=== PATIENT | male | born 1930 | race Caucasian/White ===

== ENCOUNTER 2021-05-19 06:34 | Inpatient (IN) | payer MEDICARE ==
[2021-05-15 10:03] LABS: BASOPHILS # (AUTO) 0.1 (0.0-0.1); BASOPHILS % 0.9 % (0.0-1.0); EOSINOPHILS # (AUTO) 0.5 (0.0-0.4); EOSINOPHILS % 5.9 % (0.0-6.0); HEMATOCRIT 40.5 % (38.2-49.6); HEMOGLOBIN 13.2 g/dL (14.0-18.0); LYMPHOCYTES # (AUTO) 2.6 (1.0-3.2); LYMPHOCYTES % 29.7 % (18.0-39.1); MEAN CORPUSCULAR HEMOGLOBIN 31.7 pg (28-32); MEAN CORPUSCULAR HGB CONC 32.6 g/dL (31-35); MEAN CORPUSCULAR VOLUME 97.1 fL (81-99); MONOCYTES # (AUTO) 0.7 (0.2-0.8); MONOCYTES % 7.9 % (4.4-11.3); NEUTROPHILS # (AUTO) 4.8 (2.1-6.9); NEUTROPHILS % 54.7 % (38.7-80.0); PLATELET COUNT 253 x10e3/uL (140-360); RED BLOOD COUNT 4.17 x10e6/uL (4.3-5.7); RED CELL DISTRIBUTION WIDTH 14.6 % (11.7-14.4)
[~2021-05-19] VITALS: Ht 167.6 cm; Wt 76.7 kg
[~2021-05-19 06:34] MED LIST: AMLODIPINE BESYL5 MG PO; ATORVASTATIN CA20 MG PO; CLOPIDOGREL75 MG PO; FLOMAX0.4 MG PO; MECLIZINE HCL12.5 MG PO; OMEPRAZOLE40 MG PO; TERBINAFINE HC250 MG PO
[2021-05-19] MEDS ORDERED: SODIUM CHLORIDE 0.9% 250ML 250 ML ONE (06:56)
[2021-05-19] MEDS ORDERED: SODIUM CHLORIDE 0.9% 500ML 500 ML ONE (06:56)
[2021-05-19] MEDS ORDERED: Vancomycin IV 500 MG ONE (06:56)
[2021-05-19] MEDS ORDERED: Vancomycin IV 1 GM VIAL ONE (06:56)
[2021-05-19] MEDS ORDERED: LIDOCAINE 1% W/EPINEPHRINE 20 ML VIAL ONE (06:57)
[2021-05-19] MEDS ORDERED: TRANEXAMIC ACID 1,000 MG/10 ML ML ONE (06:57)
[2021-05-19] MEDS ORDERED: DEXAMETHASONE SOD PHOS 10 MG/1 ML VIAL ONE (07:11)
[2021-05-19] MEDS ORDERED: GABAPENTIN 300 MG CAP ONE (07:11)
[2021-05-19] MEDS ORDERED: CELECOXIB 200 MG CAP ONE (07:11)
[2021-05-19] MEDS ORDERED: CARBIDOPA-LEVO1 EACH PO (07:34)
[2021-05-19] MEDS ORDERED: ROPIVACAINE 246.25 MG, EPINEPHRINE HCL 1:1000 1ML 0.5 MG, CLONIDINE HCL 0.08 MG, KETORO... INJ ONE ×5 (07:45)
[2021-05-19] MEDS ORDERED: SUGAMMADEX SODIUM 200 MG/2 ML VIAL IV ONE (09:19)
[2021-05-19] MEDS ORDERED: METOPROLOL TARTRATE INJ 1 MG/ML VIAL ONE (09:32)
[2021-05-19] MEDS ORDERED: GLYCOPYRROLATE INJ 0.2 MG/ML VIAL ONE (11:43)
[2021-05-19] MEDS ORDERED: PHENYLEPHRINE HCL 1% 10 MG/ML VIAL ONE (11:43)
[2021-05-19] MEDS ORDERED: PROPOFOL IV EMULSION 10 MG/ML 20 ML VIAL ONE (11:43)
[2021-05-19] MEDS ORDERED: ETOMIDATE 2 MG/ML 10 ML INJ IV ONE (11:43)
[2021-05-19] MEDS ORDERED: EPHEDRINE SULFATE INJ 50 MG/ML VIAL ONE (11:43)
[2021-05-19] MEDS ORDERED: POVIDONE IODINE 0.05% 0.05 % ML PO ONE (11:43)
[2021-05-19] MEDS ORDERED: ESMOLOL HCL 100MG/10ML 10 MG/ML VIAL ONE (11:43)
[2021-05-19 12:53] LABS: ANION GAP 10.3 mmol/L (8-16); CALCIUM 8.6 mg/dL (8.4-10.2); CREATININE, SERUM 1.21 mg/dL (0.72-1.25); POTASSIUM 4.3 mmol/L (3.5-5.1)
[2021-05-19] MEDS ORDERED: MIDAZOLAM HCL 2 MG/2 ML VIAL ONE (13:51)
[2021-05-19] MEDS ORDERED: FENTANYL CITRATE/PF 100MCG/2 ML INJ ONE (13:51)
[2021-05-19] MEDS ORDERED: ROPIVACAINE 0.5% 5 MG/ML 30 ML SDV ONE (13:55)
[2021-05-19 14:00] VITALS: BP 150/81
[2021-05-19 14:21] VITALS: BP 150/81
[2021-05-19 15:51] VITALS: BP 167/83
[2021-05-19] MEDS: METOPROLOL TARTRATE 25 MG TAB PO SCH (17:48)
[2021-05-19 20:40] VITALS: BP 142/72
[2021-05-19 20:58] VITALS: BP 142/72
[2021-05-20] VITALS (15 sets, daily range): BP systolic 118–156; BP diastolic 58–71
[2021-05-20] MEDS: SODIUM CHLORIDE 0.9% 1000ML 1,000 ML IV SCH ×3 (02:18→23:50)
[2021-05-20 05:26] LABS: INR 1.02
[2021-05-20 05:27] LABS: PARTIAL THROMBOPLASTIN TIME 32.2 seconds (23.8-35.5)
[2021-05-20 05:37] LABS: ALBUMIN 2.8 g/dL (3.5-5.0); ANION GAP 11.8 mmol/L (8-16); CALCIUM 8.2 mg/dL (8.4-10.2); CHOL/HDL RATIO 2.3 (3.9-4.7); CREATININE, SERUM 1.28 mg/dL (0.72-1.25); POTASSIUM 4.8 mmol/L (3.5-5.1)
[2021-05-20 06:00] LABS: THYROID STIMULATING HORMONE 0.145 uIU/mL (0.350-4.940)
[2021-05-20] MEDS: PANTOPRAZOLE SOD 40 MG TABEC PO SCH (07:30)
[2021-05-20] MEDS: METOPROLOL TARTRATE 25 MG TAB PO SCH (08:12)
[2021-05-20] MEDS ORDERED: HYDRALAZINE HCL 20 MG/ML VIAL IV PRN (08:45)
[2021-05-20] MEDS: ASPIRIN 81 MG CHEW TAB PO SCH (09:00)
[2021-05-20] MEDS: CARBIDOPA/LEVODOPA 10/100 TAB PO SCH ×4 (09:00→20:19)
[2021-05-20] MEDS ORDERED: LIDOCAINE HCL 2% LOCAL 20 ML VIAL ONE (12:38)
[2021-05-20] MEDS ORDERED: HEPARIN SOD/SOD CHLORIDE 2,000 ML ONE (12:38)
[2021-05-20] MEDS ORDERED: IOPAMIDOL 370 MG/ML 200 ML INFUS..BTL INJ ONE (12:38)
[2021-05-20] MEDS ORDERED: FENTANYL CITRATE/PF 100MCG/2 ML INJ ONE (12:48)
[2021-05-20] MEDS ORDERED: SODIUM CHLORIDE 0.9% 1000ML 1,000 ML ONE (12:48)
[2021-05-20] MEDS ORDERED: MIDAZOLAM HCL 2 MG/2 ML VIAL ONE (12:48)
[2021-05-20] MEDS: TAMSULOSIN HCL 0.4 MG CAP PO SCH (17:11)
[2021-05-20] MEDS: AMLODIPINE BESYLATE 5 MG TAB PO SCH (17:11)
[2021-05-20] MEDS: ATORVASTATIN 40 MG TAB PO SCH (20:19)
[2021-05-21] VITALS (8 sets, daily range): BP systolic 111–144; BP diastolic 56–78
[2021-05-21 05:58] LABS: ANION GAP 10.3 mmol/L (8-16); CALCIUM 7.9 mg/dL (8.4-10.2); CREATININE, SERUM 1.24 mg/dL (0.72-1.25); POTASSIUM 4.3 mmol/L (3.5-5.1)
[2021-05-21] MEDS: PANTOPRAZOLE SOD 40 MG TABEC PO SCH (09:13)
[2021-05-21] MEDS: AMLODIPINE BESYLATE 5 MG TAB PO SCH (09:13)
[2021-05-21] MEDS: ASPIRIN 81 MG CHEW TAB PO SCH (09:13)
[2021-05-21] MEDS: CARBIDOPA/LEVODOPA 10/100 TAB PO SCH ×4 (09:13→20:40)
[2021-05-21] MEDS: TAMSULOSIN HCL 0.4 MG CAP PO SCH (16:41)
[2021-05-21] MEDS: ATORVASTATIN 40 MG TAB PO SCH (20:39)
[2021-05-22 05:11] VITALS: BP 138/83
[2021-05-22 08:07] VITALS: BP 161/79
[2021-05-22 08:36] VITALS: BP 161/79
[2021-05-22] MEDS: ASPIRIN 81 MG CHEW TAB PO SCH (09:00)
[2021-05-22] MEDS: LOSARTAN POTASSIUM 25 MG TAB PO SCH (09:02)
[2021-05-22] MEDS: CARBIDOPA/LEVODOPA 10/100 TAB PO SCH ×4 (09:02→21:15)
[2021-05-22] MEDS: PANTOPRAZOLE SOD 40 MG TABEC PO SCH (09:02)
[2021-05-22 12:01] VITALS: BP 147/71
[2021-05-22] MEDS ORDERED: MIDAZOLAM HCL 2 MG/2 ML VIAL ONE (13:24)
[2021-05-22] MEDS ORDERED: GENTAMICIN SULFATE 40 MG/ML 2 ML VIAL ONE (13:25)
[2021-05-22] MEDS ORDERED: LIDOCAINE HCL 2% LOCAL 20 ML VIAL ONE (13:25)
[2021-05-22] MEDS ORDERED: FENTANYL CITRATE/PF 100MCG/2 ML INJ ONE (13:25)
[2021-05-22] MEDS ORDERED: SODIUM CHLORIDE 0.9% 500ML 500 ML ONE (13:26)
[2021-05-22] MEDS ORDERED: IOPAMIDOL 300MG/ML 50ML INFUS..BTL IV ONE (13:26)
[2021-05-22] MEDS ORDERED: Vancomycin IV 1 GM VIAL ONE (13:26)
[2021-05-22] MEDS ORDERED: SODIUM CHLORIDE 0.9% 1000ML 2,000 ML ONE (13:26)
[2021-05-22] MEDS ORDERED: SODIUM CHLORIDE 0.9% 250ML 250 ML ONE (13:27)
[2021-05-22 16:00] VITALS: BP 157/74
[2021-05-22] MEDS: TAMSULOSIN HCL 0.4 MG CAP PO SCH (16:06)
[2021-05-22] MEDS ORDERED: LIDOCAINE 1% W/EPINEPHRINE 20 ML VIAL ONE (18:08)
[2021-05-22 20:00] VITALS: BP 143/71
[2021-05-22] MEDS: ATORVASTATIN 40 MG TAB PO SCH (21:15)
[2021-05-23] VITALS (7 sets, daily range): BP systolic 107–159; BP diastolic 71–88
[2021-05-23] MEDS: PANTOPRAZOLE SOD 40 MG TABEC PO SCH (08:02)
[2021-05-23] MEDS: CARVEDILOL 3.125 MG TAB PO SCH ×2 (08:41→20:55)
[2021-05-23] MEDS: ASPIRIN 81 MG CHEW TAB PO SCH (08:44)
[2021-05-23] MEDS: LOSARTAN POTASSIUM 25 MG TAB PO SCH (08:44)
[2021-05-23] MEDS: CARBIDOPA/LEVODOPA 10/100 TAB PO SCH ×4 (08:45→20:55)
[2021-05-23] MEDS: HYDROCODONE/APAP 10MG-325MG TAB PO PRN (15:31)
[2021-05-23] MEDS: TAMSULOSIN HCL 0.4 MG CAP PO SCH (17:15)
[2021-05-23] MEDS: ATORVASTATIN 40 MG TAB PO SCH (20:54)
[2021-05-24] VITALS: BP 117/74
[2021-05-24 02:17] VITALS: BP 117/74
[2021-05-24 04:00] VITALS: BP 136/80
[2021-05-24] MEDS: HYDROCODONE/APAP 10MG-325MG TAB PO PRN (05:30)
[2021-05-24 08:29] VITALS: BP 147/89
[2021-05-24 08:38] VITALS: BP 147/89
[2021-05-24] MEDS ORDERED: COREG3.125 MG PO (11:05)
[2021-05-24] MEDS ORDERED: DOXYCYCLINE MO100 MG PO (11:08)
== END 2021-05-24 12:30 | disposition home or self-care (01) | DRG 242 ==
LOC: OR 06:34 → PACU V 13:18 → MED/SURG 13:41 → OBSVTOIN 05-20 08:35
PROVIDERS: ADMIT Internal Medicine; ATTEND Internal Medicine
PROC: 4A023N7 Measurement of Cardiac Sampling and Pressure, Left Heart, Percutaneous Approach (ICD-10-PCS; principal; 2021-05-20)
PROC: 0JH607Z Insertion of Cardiac Resynchronization Pacemaker Pulse Generator into Chest Subcutaneous Tissue and Fascia, Open Approach (ICD-10-PCS; 2021-05-20)
PROC: 02H63JZ Insertion of Pacemaker Lead into Right Atrium, Percutaneous Approach (ICD-10-PCS; 2021-05-20)
PROC: 02HL3JZ Insertion of Pacemaker Lead into Left Ventricle, Percutaneous Approach (ICD-10-PCS; 2021-05-20)
PROC: B2111ZZ Fluoroscopy of Multiple Coronary Arteries using Low Osmolar Contrast (ICD-10-PCS; 2021-05-20)
PROC: B2151ZZ Fluoroscopy of Left Heart using Low Osmolar Contrast (ICD-10-PCS; 2021-05-20)
DX: I49.5 Sick sinus syndrome (principal); I50.23 Acute on chronic systolic (congestive) heart failure; I47.2 Ventricular tachycardia; I13.0 Hypertensive heart and chronic kidney disease with heart failure and stage 1 through stage 4 chronic kidney disease, or unspecified chronic kidney disease; M19.011 Primary osteoarthritis, right shoulder; I25.10 Atherosclerotic heart disease of native coronary artery without angina pectoris; Z95.5 Presence of coronary angioplasty implant and graft; E78.5 Hyperlipidemia, unspecified; N18.9 Chronic kidney disease, unspecified; I25.82 Chronic total occlusion of coronary artery; I25.5 Ischemic cardiomyopathy
CPT/HCPCS: 33208; 36415; 71046; 75820; 76937; 80048; 80053; 80061; 83735; 84443; 84484; 85025; 85610; 85730; 86850; 86900; 86920; 93005; 93306; 93458; 99152; 99153; 99251; C1760; C1769; C1785; C1898; G0378; J0171; J1100; J1580; J1885; J2001; J2250; J2370; J2795; J3010; J3370; J7030; J7040; J7050; Q9967